=== PATIENT | male | born 1955 | race Caucasian/White ===

== ENCOUNTER 2023-05-18 06:33 | Outpatient (OUT) | payer MEDICARE, SELFPAY ==
[2023-05-18 07:20] LABS: Basophils Absolute Auto 0.1 10^3/uL (0.0-0.1); Basophils Percent Auto 0.7 % (0.2-2.0); Eosinophils Absolute Auto 0.1 10^3/uL (0.0-0.7); Eosinophils Percent Auto 1.5 % (0.9-7.0); Hematocrit 44.7 % (42.0-54.0); Hemoglobin 14.6 g/dL (14.0-18.0); Immature Granulocytes Abs Auto 0.03 10^3/uL (0.00-0.03); Immature Granulocytes Pct Auto 0.4 % (0.0-0.5); Lymphocytes Absolute Auto 1.7 10^3/uL (1.2-3.8); Lymphocytes Percent Auto 20.4 % (20.5-60.0); Mean Corpuscular HGB Conc 32.7 g/dL (29.9-35.2); Mean Corpuscular Hemoglobin 29.7 pg (25.9-34.0); Mean Corpuscular Volume 90.9 fL (80.0-94.0); Mean Platelet Volume 10.5 fL (9.5-13.5); Monocytes Absolute Auto 0.8 10^3/uL (0.3-0.8); Monocytes Percent Auto 9.1 % (1.7-12.0); Neutrophils Absolute Auto 5.8 10^3/uL (1.4-6.5); Neutrophils Percent Auto 67.9 % (43.0-75.0); Platelet Count 238 10^3/uL (150-450); Red Blood Count 4.92 10^6/uL (4.70-6.10); Red Cell Distribution Width 12.4 % (11.0-15.0); White Blood Count 8.5 10^3/uL (4.0-11.0)
[2023-05-18 07:26] LABS: Bilirubin Urine NEGATIVE (NEGATIVE); Blood Urine TRACE-I (NEGATIVE); Clarity Urine CLEAR (CLEAR); Color Urine YELLOW (YELLOW); Glucose Urine UA NEGATIVE (NEGATIVE); Ketones Urine NEGATIVE (NEGATIVE); Leukocyte Esterase Urine NEGATIVE (NEGATIVE); Nitrite Urine NEGATIVE (NEGATIVE); Protein Urine NEGATIVE (NEG/TRACE); Specific Gravity Urine >=1.030 (1.005-1.025); Urobilinogen Urine 0.2 EU/dL (0.2-1.0)
[2023-05-18 07:38] LABS: Bacteria Urine NONE SEEN #/HPF (NONE SEEN); Mucus Urine NONE SEEN (NONE SEEN); RBC Urine 0-2 #/HPF (0-2); Squamous Epithelial Cell Urine RARE #/LPF (NONE/RARE); WBC Urine NONE SEEN #/HPF (NONE SEEN)
[2023-05-18 08:36] LABS: Alanine Aminotransferase 32 U/L (16-63); Albumin Globulin Ratio 1.1; Albumin Level 3.5 g/dL (3.4-5.0); Alkaline Phosphatase 88 U/L (46-116); Anion Gap 8.8; Aspartate Amino Transferase 13 U/L (15-37); BUN Creatinine Ratio 15.5; Bilirubin Total 0.9 mg/dL (0.2-1.0); Calcium 8.8 mg/dL (8.5-10.1); Carbon Dioxide 29.8 mmol/L (21.0-32.0); Chloride 105 mmol/L (98-107); Chol HDL Ratio 1.9; Cholesterol 105 mg/dL (<=200); Estimated GFR (African America >60 (>=60); Estimated GFR (Non-African Ame >60 (>=60); Globulin 3.3 g/dL; Glucose 109 mg/dL (74-106); HDL Cholesterol 55 mg/dL (40-60); LDL Cholesterol Calculated 40.8 mg/dL; Potassium 4.6 mmol/L (3.5-5.1); Sodium 139 mmol/L (136-145); Total Protein 6.8 g/dL (6.4-8.2); Triglycerides 46 mg/dL (<=150); VLDL CHOLESTEROL 9.2 mg/dL
[2023-05-18 08:52] LABS: Prostate Specific Antigen Scrn 4.03 ng/mL (<=4.00)
[2023-05-18 12:52] LABS: Estimated Average Glucose 120 mg/dL; Glycohemoglobin A1C 5.8 % (4.5-6.2)
[2023-05-19 05:08] LABS: HCV Antibody Non Reactive (Non Reactive)
== END 2023-05-18 06:34 | disposition home or self-care (01) ==
LOC: LAB 06:37
PROVIDERS: PCP Nurse Practitioner; Visit Provider Nurse Practitioner
DX: Z12.5 Encounter for screening for malignant neoplasm of prostate (principal); E78.00 Pure hypercholesterolemia, unspecified; I10 Essential (primary) hypertension; Z11.59 Encounter for screening for other viral diseases; I49.3 Ventricular premature depolarization; R73.9 Hyperglycemia, unspecified
CPT/HCPCS: 36415; 80053; 80061; 81001; 83036; 83735; 85025; 86803; G0103

== ENCOUNTER 2023-05-22 10:00 | Outpatient (OUT) | payer MEDICARE, SELFPAY ==
--- NOTE | 2023-05-22 10:03 | CA_ITS ---
[facility] Test Date: 2023-06-06 Pat Name: MARINA HOWARD Department: Room: - Gender: Male [employer] Kitchen: : 1955 Requested By: JADYN SERRANO Order Number: [id number] Reading MD: RAN LOWE Interpretive Statements Predominant rhythm is sinus w/ average rate of 75 bpm TAchycardia - max rate of 136 bpm - longest episode of 42min 32sec w/ rate of 112-116 bpm Bradycardia - min rate of 51 bpm - longest episode of 4min 17sec w/ rate of 55-59 bpm Ventricular ectopy - 24,321 total (9%) - 15,573 PVC - 128 couplets - 44 bigeminy - 8,564 trigeminy NSVT - 4 episodes w/ 3 beat duration Patient triggered events: none Impression: Predominant rhythm is sinus w/ average rate of 75 bpm Fastest rate of 136 and slowest rate of 51 bpm 15,573 PVC, 8,564 trigemiy, 128 couplets and 44 bigeminy 4 episodes of 3 beat VT No blocks or pauses Electronically Signed On 06-09-2023 7:16:12 EDT by RAN LOWE
== END 2023-05-22 10:01 | disposition home or self-care (01) ==
LOC: CARD 10:00
PROVIDERS: PCP Nurse Practitioner; Visit Provider Nurse Practitioner
DX: I49.3 Ventricular premature depolarization (principal)
CPT/HCPCS: 93242

== ENCOUNTER 2024-07-17 07:22 | Outpatient (OUT) | payer MEDICARE, SELFPAY ==
--- NOTE | 2024-07-17 | US_ITS ---
[address] [address] Patient Name: MARINA HOWARD MRN: [id number] date: 1955 Sex: M Assigned Patient Location: US Current Patient Location: US Accession/Order Number: [id number] Exam Date: 07/17/2024 07:26 Report Date: 07/17/2024 12:14 At the request of: JADYN SERRANO Procedure: US right upper quadrant EXAMINATION: US right upper quadrant HISTORY: Serum total bilirubin elevated R17 COMPARISON: No relevant comparison available. TECHNIQUE: Transabdominal evaluation of the right upper quadrant. FINDINGS: LIVER: Scattered, rather prominent areas of slightly increased echogenicity and overall slightly heterogeneous appearance of the liver. PORTAL VEIN: Duplex Doppler demonstrates normal hepatopetal flow pattern with flow velocity averaging 29 cm/s. GALLBLADDER: Cholecystectomy. BILIARY: No abnormal dilation or stones. Common bile duct diameter is within normal limits. PANCREAS: Not well seen due to overlying bowel gas. No visible mass, abnormal atrophy, or duct dilation. KIDNEY: No hydronephrosis. No visible mass or stones. Size: 12.6 x 5.8 x 5.7 cm US/US right upper quadrant IMPRESSION: 1. Suspect heterogeneous fatty infiltration of liver but underlying lesions cannot be completely excluded. CT abdomen without and with IV contrast using the multiphase liver protocol is recommended. Electronically authenticated by: LOGAN BOND Date: 07/17/2024 12:14
== END 2024-07-17 07:23 | disposition home or self-care (01) ==
LOC: US 07:22
PROVIDERS: PCP Nurse Practitioner; Visit Provider Nurse Practitioner
DX: R17 Unspecified jaundice (principal)
CPT/HCPCS: 76705